=== PATIENT | male | born 1965 | race Caucasian/White ===

== ENCOUNTER 2016-12-02 12:16 | Emergency (ER) | payer OTHER ==
[~2016-12-02] VITALS: Ht 175.3 cm; Wt 129.3 kg
[~2016-12-02 12:16] MED LIST: ACCUNEB SOL3 ML/NE1 IN; AMOXICILLIN AND1 TA2 PO; CIPRO 500MG TA500 MG PO; FLEXERIL10 MG PO; HYDROCODONE1 TABLET PO; MEDROL 4MG. DOSE4 MG PO; MOTRIN800 MG PO; NOMEDS; PREDNISONE 10MG10 MG PO; PREDNISONE 20MG20 MG PO; PROVENTIL0.09 MG/A1 IH; TAMIFLU75 MG PO; VICODIN 5/500 T1 TAB PO; ZITHROMAX 250M250 MG PO
--- NOTE | 2016-12-02 12:36 | Emergency Room Report ---
History of Present Illness Time Seen by MD Fragoso Presenting Problem in Triage Pt arrived:Walked Presenting Problem:PT HAS ABSCESS TO RLL , POSSIBLE SPIDER BITE , NO DRAINAGE Onset of symptoms date/time:11/30/16 or onset unknown for: Treatment Prior to Arrival: [employer] Provided by: Sepsis Risk Assessment: Temp: 98.4 B/P: 131/96 MAP: 107 Pulse: 94 Resp: 20 Recent fever? N Clinical Suspician of Infection? Y Mental Status: 1 - Regular (Normal Baseline) Sepsis Risk:Possible Sepsis Risk Have you (or family members/close friends) recently traveled outside the [place]? N If Yes, where/when: Have you had exposure to infectious disease within the past month? N TB? Other? Specify: Comment The patient complains of an infected area on his RIGHT bundy has been there for a couple of days. Initially he had what looked like a small mcgee and has now grown larger and more painful. He has a history of boils in the past. He wonders about a spider bite, but did not see a spider bite him. No fever. ALLERGIES Coded Allergies: No Known Allergies (12/02/16) Home Medications Active Scripts Prednisone (Prednisone 20MG) 20 MG PO BID #10 TAB Prov: 03/16/14 Reported Medications No Home Medications (NO HOME MEDICATIONS) History Medical History General CAD? No Angina: No NM: No Hypertension? Yes Hyperlipidemia? No CHF? No COPD? No Asthma? No Anemia? No Hernia? No Thyroid Problems? No Hypothyroidism? No CVA? No Seizures? No Diabetes? No End Stage Renal Disease? No UTI? No Stones? No GB Disease: No Nephritic Syndrome? No Asplenia? No Hepatitis? No Sickle Cell Disease? No Arthritis? No Cataracts? No Glaucoma? No MRSA? No TB? No Cancer? No Immunization Hx DT/Tetanus Unknown Surgical Hx Previous Surgery?Y HEART VALVE Social History Smoking Hx Smoker: Current Every Day Smoker Tobacco: Yes Type Cigarettes Packs/day < 1 Pack Alcohol Alcohol: No Review of Systems All Other Systems Reviewed and Negative Constitutional denies fever Skin see HPI Physical Exam Vital Signs Vital Signs Date Time Temp Pulse Resp B/P Pulse O2 O2 Flow FiO2 Ox Delivery Rate 12/02 1319 97.7 67 20 124/85 98 12/02 1222 98.4 94 20 131/96 99 General Appearance normal appearance Respiratory Status No: respiratory distress. Cardiovascular regular rate/rhythm, normal peripheral pulses Extremities on the RIGHT bundy there is a small scab 3 mm diameter. Surrounding this is an indurated, erythematous, tender area 3 cm diameter. No fluctuance palpable. Neurologic alert, no motor/sensory deficits Medical Decision Making LABS/Meds/Orders Pt receiving controlled substance in ED? No Results/Orders Current Medication Orders Sig/Varun Start time Last Medication Dose Route Stop Time Status Admin Trimethoprim/ 0 .STK-MED ONE 12/02 1315 DC Sulfamethoxazole PO Trimethoprim/ 1 TABLET ONCE ONE 12/02 1300 DCr 12/02 Sulfamethoxazole PO 12/02 1301 1315 Procedures Incision and Drainage Progress Incision/Drainage Performed by: SERGE WASHINGTON Consent: Verbal consent obtained. Risks and benefits: risks, benefits and alternatives were discussed Consent given by: patient Patient identity confirmed: verbally with patient Type: abscess Location: RIGHT leg Anesthesia: local infiltration Local anesthetic: lidocaine 1% with epinephrine Patient sedated: no Scalpel size: 11 Incision type: single straight Complexity: simple Drainage: Blood, no pus obtained Drainage amount: Scant Wound treatment: probed for loculationsl. wound left open Packing: None Culture: No Patient tolerance: Patient tolerated the procedure well with no immediate complications Departure Departure Disposition DC Home or Self Care(routine) Clinical Impression Primary Impression: Cutaneous abscess of extremity Qualifiers: Site of cutaneous abscess of extremity: lower extremity Laterality: right Qualified Code: L02.415 - Cutaneous abscess of right lower limb Condition STABLE Referrals MEG SALAZAR (PCP/Family) Patient Instructions DI for Incision and Drainage of a Skin Abscess Additional Instructions Antibiotic as prescribed. Follow-up recheck by your physician in 2-3 days. Return to the emergency room if worsening pain, redness, or fever develops. Prescriptions Current Visit Scripts SULFAMETHOXAZOLE W/TRIMETHOPRI (Bactrim Ds Tab) 1 TAB PO BID #20 TAB ED Critical Care Critical Care No at 5315
[2016-12-02] MEDS ORDERED: BACTRIM DS 8001 TA1 PO (12:58)
[2016-12-02 13:19] VITALS: BP 124/85
== END 2016-12-02 13:20 | disposition home or self-care (01) ==
LOC: ER 12:16
PROC: 0H9KXZZ Drainage of Right Lower Leg Skin, External Approach (ICD-10-PCS; principal; 2016-12-02)
DX: L02.415 Cutaneous abscess of right lower limb (principal); F17.210 Nicotine dependence, cigarettes, uncomplicated

== ENCOUNTER 2016-12-10 12:55 | Outpatient (CLI) | payer OTHER ==
[~2016-12-10 12:55] MED LIST changes: +BACTRIM DS 8001 TA1 PO
[2016-12-10 13:53] LABS: BUN 16 mg/dL (7-18)
[2016-12-10 13:54] LABS: GFR (ESTIMATED) 90 ML/MIN (>60)
[2016-12-10 14:10] VITALS: BP 115/66
--- NOTE | 2016-12-10 14:21 | RADIOLOGY REPORT PS360 ---
LOWER LEG-RT COMPARISON: Left ankle 03/16/2014 HISTORY: Swelling of the lower leg, suspect cellulitis TECHNIQUE: AP lateral and oblique views FINDINGS: The tibia and fibula appear intact with no evidence of recent or old fracture. The soft tissues are normal. IMPRESSION: Negative left tibia and fibula
[2016-12-10] MEDS ORDERED: LISINOPRIL10 MG PO (14:27)
[2016-12-10] MEDS ORDERED: RESTORIL 15MG C15 MG PO (14:27)
[2016-12-10 14:40] VITALS: BP 91/74
[2016-12-10 15:10] VITALS: BP 120/87
[2016-12-10 15:40] VITALS: BP 104/66
[2016-12-10 16:10] VITALS: BP 103/69
[2016-12-10 16:48] VITALS: BP 121/73
== END 2016-12-10 16:50 | disposition home or self-care (01) ==
LOC: LAB 12:55 → COP 12:55
PROVIDERS: Emergency Medicine
DX: L03.115 Cellulitis of right lower limb (principal)
CPT/HCPCS: J3370

== ENCOUNTER 2016-12-11 08:15 | Outpatient (CLI) | payer OTHER ==
[2016-12-11] VITALS (8 sets, daily range): BP systolic 106–143; BP diastolic 59–79
[~2016-12-11 08:15] MED LIST changes: +LISINOPRIL10 MG PO; +RESTORIL 15MG C15 MG PO
== END 2016-12-11 22:50 | disposition home or self-care (01) ==
LOC: COP 08:15
DX: L03.115 Cellulitis of right lower limb (principal)
CPT/HCPCS: J3370

== ENCOUNTER 2016-12-12 08:09 | Outpatient (CLI) | payer OTHER ==
[2016-12-12 10:00] VITALS: BP 119/82
[2016-12-12 11:00] VITALS: BP 111/754
--- NOTE | 2016-12-12 12:15 | CONSULT NOTE ---
Pharmacokinetic Consult Date of consult: 12/12/16 Time of consult: 1213 Referring provider: DR. SILVEIRA Reason for consult: VANCOMYCIN TROUGH LEVEL Allergies: Coded Allergies: No Known Allergies (12/11/16) Home Medications: Reported Medications Temazepam (Restoril 15MG) 15 MG PO QHS #30 Lisinopril 10 MG PO DAILY #30 Height (feet): 0 Height (inches): 0.00 Medical History: CAD? No Angina: No PA: No Hypertension? Yes Hyperlipidemia? No CHF? No COPD? No Asthma? No Anemia? No Hernia? No Thyroid Problems? No Hypothyroidism? No CVA? No Seizures? No Diabetes? No UTI? No Stones? No GB Disease: No Nephritic Syndrome? No Asplenia? No Hepatitis? No Sickle Cell Disease? No Arthritis? No Cataracts? No Glaucoma? No MRSA? No TB? No Cancer? No Labs: Laboratory Tests 12/12/16 0600: Vancomycin Trough 11.5 H Problem List: 1. Cutaneous abscess of extremity Plan: BASED ON PATIENT FACTORS AND VANCOMYCIN TROUGH LEVEL OF 11.5, RECOMMEND CONTINUING CURRENT DOSE OF VANCOMYCIN 2,250MG IV EVERY 12 HOURS. PHARMACY WILL CONTINUE TO MONITOR AND ADJUST DOSE APPROPRIATE. at 1214
--- NOTE | 2016-12-12 12:15 | CONSULT NOTE ---
Pharmacokinetic Consult Date of consult: 12/12/16 Time of consult: 1213 Referring provider: DR. SILVEIRA Reason for consult: VANCOMYCIN TROUGH LEVEL Allergies: Coded Allergies: No Known Allergies (12/11/16) Home Medications: Reported Medications Temazepam (Restoril 15MG) 15 MG PO QHS #30 Lisinopril 10 MG PO DAILY #30 Height (feet): 0 Height (inches): 0.00 Medical History: CAD? No Angina: No ND: No Hypertension? Yes Hyperlipidemia? No CHF? No COPD? No Asthma? No Anemia? No Hernia? No Thyroid Problems? No Hypothyroidism? No CVA? No Seizures? No Diabetes? No UTI? No Stones? No GB Disease: No Nephritic Syndrome? No Asplenia? No Hepatitis? No Sickle Cell Disease? No Arthritis? No Cataracts? No Glaucoma? No MRSA? No TB? No Cancer? No Labs: Laboratory Tests 12/12/16 0600: Vancomycin Trough 11.5 H Problem List: 1. Cutaneous abscess of extremity Plan: BASED ON PATIENT FACTORS AND VANCOMYCIN TROUGH LEVEL OF 11.5, RECOMMEND CONTINUING CURRENT DOSE OF VANCOMYCIN 2,250MG IV EVERY 12 HOURS. PHARMACY WILL CONTINUE TO MONITOR AND ADJUST DOSE APPROPRIATE. at 1214
[2016-12-12 12:25] VITALS: BP 127/74
[2016-12-12 20:15] VITALS: BP 120/58
[2016-12-12 22:20] VITALS: BP 113/69
[2016-12-13] MEDS ORDERED: IBUPROFEN 600M600 MG PO (20:27)
== END 2016-12-12 22:55 | disposition home or self-care (01) ==
LOC: COP 08:09
DX: L03.115 Cellulitis of right lower limb (principal)
CPT/HCPCS: J3370

== ENCOUNTER 2016-12-13 08:14 | Outpatient (CLI) | payer OTHER ==
[~2016-12-13] VITALS: Ht 172.7 cm; Wt 124.7 kg
[2016-12-13 08:30] VITALS: BP 116/63
[2016-12-13 11:10] VITALS: BP 113/72
[2016-12-13 20:15] VITALS: BP 138/87
[2016-12-13] MEDS ORDERED: IBUPROFEN 600M600 MG PO (20:27)
[2016-12-13 22:30] VITALS: BP 126/76
== END 2016-12-13 22:40 | disposition home or self-care (01) ==
LOC: COP 08:14
DX: L03.115 Cellulitis of right lower limb (principal)
CPT/HCPCS: J3370

== ENCOUNTER 2016-12-14 08:30 | Outpatient (CLI) | payer OTHER ==
[~2016-12-14 08:30] MED LIST changes: +IBUPROFEN 600M600 MG PO
[2016-12-14 08:45] VITALS: BP 102/62
[2016-12-14 09:45] VITALS: BP 122/70
[2016-12-14 10:30] VITALS: BP 116/68
[2016-12-14 20:40] VITALS: BP 100/46
[2016-12-14 23:05] VITALS: BP 117/81
== END 2016-12-14 23:10 | disposition home or self-care (01) ==
LOC: COP 08:30
DX: L03.115 Cellulitis of right lower limb (principal)
CPT/HCPCS: J3370

== ENCOUNTER 2016-12-15 08:35 | Outpatient (CLI) | payer OTHER ==
[2016-12-15] VITALS (8 sets, daily range): BP systolic 105–151; BP diastolic 68–91
== END 2016-12-15 10:45 | disposition home or self-care (01) ==
LOC: COP 08:35
DX: L03.115 Cellulitis of right lower limb (principal)
CPT/HCPCS: J3370

== ENCOUNTER → 2016-12-16 | Outpatient (CLI) | payer OTHER ==
[2016-12-16] VITALS (7 sets, daily range): BP systolic 101–131; BP diastolic 57–80
== END ==
LOC: COP 08:00
DX: L03.115 Cellulitis of right lower limb (principal)
CPT/HCPCS: J3370

== ENCOUNTER 2016-12-17 14:29 | Outpatient (CLI) | payer OTHER ==
[2016-12-17 13:35] VITALS: BP 105/66
[2016-12-17 14:05] VITALS: BP 107/64
--- NOTE | 2016-12-17 14:49 | RADIOLOGY REPORT PS360 ---
CHEST PORTABLE-PICC PLACEMENT CLINICAL INDICATION: PICC PLACEMENT ORDERING PHYSICIAN: JENNIFER CHURCHILL PATIENT AGE: 51 years COMPARISON: 02/25/2012 FINDINGS: Left upper extremity PICC line has been placed. The tip is in good position in the superior vena cava. There are surgical clips projecting over the left perihilar region. Unremarkable cardiovascular structures with clear lungs. IMPRESSION: Good position of left upper extremity PICC line
[2016-12-17 16:05] VITALS: BP 105/66
[2016-12-17 16:35] VITALS: BP 102/64
[2016-12-17 17:05] VITALS: BP 107/69
[2016-12-17 17:34] VITALS: BP 107/66
== END 2016-12-17 17:37 | disposition home or self-care (01) ==
LOC: COP 14:29
PROC: 05HC33Z Insertion of Infusion Device into Left Basilic Vein, Percutaneous Approach (ICD-10-PCS; principal; 2016-12-17)
DX: L03.115 Cellulitis of right lower limb (principal); B95.8 Unspecified staphylococcus as the cause of diseases classified elsewhere
CPT/HCPCS: C1751; J3370

== ENCOUNTER 2016-12-18 08:10 | Outpatient (CLI) | payer OTHER ==
[2016-12-18] VITALS (7 sets, daily range): BP systolic 102–140; BP diastolic 54–76
[~2016-12-18] VITALS: Ht 172.7 cm; Wt 123.8 kg
== END 2016-12-18 22:30 ==
LOC: COP 08:10
DX: L03.115 Cellulitis of right lower limb (principal); B95.8 Unspecified staphylococcus as the cause of diseases classified elsewhere
CPT/HCPCS: J3370

== ENCOUNTER 2016-12-19 08:13 | Outpatient (CLI) | payer OTHER ==
[~2016-12-19] VITALS: Ht 172.7 cm; Wt 124.7 kg
[2016-12-19 09:26] VITALS: BP 138/89
[2016-12-19 09:54] VITALS: BP 146/78
[2016-12-19 11:04] VITALS: BP 124/78
[2016-12-19 20:30] VITALS: BP 107/65
[2016-12-19 22:30] VITALS: BP 112/70
== END 2016-12-19 22:35 | disposition home or self-care (01) ==
LOC: COP 08:13
DX: L03.115 Cellulitis of right lower limb (principal); B95.8 Unspecified staphylococcus as the cause of diseases classified elsewhere
CPT/HCPCS: J3370

== ENCOUNTER 2016-12-20 08:22 | Outpatient (CLI) | payer OTHER ==
[~2016-12-20] VITALS: Ht 172.7 cm; Wt 131.5 kg
[2016-12-20 09:14] VITALS: BP 119/68
[2016-12-20 11:01] VITALS: BP 129/73
[2016-12-20 20:36] VITALS: BP 111/67
[2016-12-20 22:20] VITALS: BP 117/72
== END 2016-12-20 22:25 | disposition home or self-care (01) ==
LOC: COP 08:22
DX: L03.115 Cellulitis of right lower limb (principal); B95.8 Unspecified staphylococcus as the cause of diseases classified elsewhere
CPT/HCPCS: J3370

== ENCOUNTER → 2016-12-21 | Outpatient (CLI) | payer OTHER ==
[2016-12-21 08:43] VITALS: BP 125/77
[2016-12-21 09:00] VITALS: BP 114/66
[2016-12-21 09:30] VITALS: BP 129/75
[2016-12-21 10:00] VITALS: BP 116/73
[2016-12-21 10:32] VITALS: BP 108/72
== END ==
LOC: COP 08:13
DX: L03.115 Cellulitis of right lower limb (principal); B95.8 Unspecified staphylococcus as the cause of diseases classified elsewhere
CPT/HCPCS: J3370

== ENCOUNTER 2016-12-22 08:15 | Outpatient (CLI) | payer OTHER ==
[2016-12-22 08:30] VITALS: BP 135/79
[2016-12-22 09:52] VITALS: BP 129/80
[2016-12-22 10:33] VITALS: BP 127/84
== END 2016-12-22 12:00 | disposition home or self-care (01) ==
LOC: COP 08:15
DX: L03.115 Cellulitis of right lower limb (principal); B95.8 Unspecified staphylococcus as the cause of diseases classified elsewhere
CPT/HCPCS: J3370

== ENCOUNTER 2016-12-24 08:00 | Outpatient (CLI) | payer OTHER | END 2016-12-24 08:20 | disposition home or self-care (01) | LOC: COP 08:00 | DX: L03.115 Cellulitis of right lower limb (principal); B95.8 Unspecified staphylococcus as the cause of diseases classified elsewhere | CPT/HCPCS: G0463 ==